=== PATIENT | male | born 1940 | race Caucasian/White ===

== ENCOUNTER → 2019-04-03 | Outpatient (CLI) | payer OTHER ==
[2019-04-03 15:39] LABS: ALBUMIN 3.7 GM/DL (3.2-4.5); BILIRUBIN,TOTAL 1.1 MG/DL (0.1-1.0); CALCIUM 9.3 MG/DL (8.5-10.1); CREATININE SERUM 1.77 MG/DL (0.60-1.30); POTASSIUM 4.5 MMOL/L (3.6-5.0); TOTAL PROTEIN 6.4 GM/DL (6.4-8.2)
== END ==
LOC: HH 15:00
PROVIDERS: ATTEND Family Medicine
DX: I50.9 Heart failure, unspecified (principal); I67.9 Cerebrovascular disease, unspecified; F32.9 Major depressive disorder, single episode, unspecified; I51.3 Intracardiac thrombosis, not elsewhere classified
CPT/HCPCS: 80053; 83880

== ENCOUNTER → 2019-05-05 | Outpatient (CLI) | payer OTHER | LOC: HOSHH 11:08 | PROVIDERS: ATTEND Internal Medicine | DX: I50.9 Heart failure, unspecified (principal) | CPT/HCPCS: 84132 ==

== ENCOUNTER → 2019-07-05 | Outpatient (CLI) | payer OTHER | LOC: LABNPT 12:10 | PROVIDERS: ATTEND Family Medicine | DX: L97.219 Non-pressure chronic ulcer of right calf with unspecified severity (principal) | CPT/HCPCS: 87070; 87077; 87186; 87205 ==